=== PATIENT | female | born 1980 | race Caucasian/White ===

== ENCOUNTER 2023-08-08 21:21 | Emergency (ER) | payer OTHER, SELFPAY ==
[2023-08-08 21:34] VITALS: BP 137/69; PULSE 71; RESP 18; TEMP 36.8; O2SAT 100
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
[2023-08-08 22:01] LABS: Basophils Absolute Auto 0.09 K/mm3 (0.00-0.10); Basophils Percent Auto 1.1 % (0.0-1.0); Eosinophils Absolute Auto 0.45 K/mm3 (0.02-0.50); Eosinophils Percent Auto 5.5 % (1.0-6.0); Hematocrit 31.6 % (35.0-49.0); Hemoglobin 8.9 g/dL (12.0-15.0); Immature Granulocyte Absolute 0.03 K/mm3 (0.00-0.00); Immature Granulocyte Percent A 0.4 % (0.0-0.0); Immature Platelet Fraction Pct 3.5 % (1.0-7.0); Lymphocytes Absolute Auto 1.35 K/mm3 (1.10-4.50); Lymphocytes Percent Auto 16.6 % (18.0-42.0); Mean Corpuscular HGB Conc 28.2 g/dL (32.0-36.0); Mean Corpuscular Hemoglobin 17.9 pg (27.0-31.0); Mean Corpuscular Volume 63.7 fL (78.0-102.0); Monocytes Absolute Auto 0.84 K/mm3 (0.10-0.90); Monocytes Percent Auto 10.3 % (2.0-11.0); Neutrophils Absolute Auto 5.4 K/mm3 (1.7-7.2); Neutrophils Percent Auto 66.1 % (50.0-70.0); Platelet Count Result 562 K/mm3 (150-420); Red Blood Count 4.96 M/mm3 (4.20-5.40); Red Cell Distribution Width 22.8 % (11.6-14.4); White Blood Count 8.1 K/mm3 (4.8-10.8)
[2023-08-08 22:15] LABS: Amphetamine Screen Urine Negative (Negative); Barbiturate Screen Urine Negative (Negative); Benzodiazepines Screen Urine Negative (Negative); Cannabinoid Screen Urine Positive (Negative); Cocaine Screen Urine Negative (Negative); Methadone Screen Urine Negative (Negative); Opiate Screen Urine Negative (Negative); Phencyclidine Screen Urine Negative (Negative)
[2023-08-08 22:20] LABS: Lactic Acid Reflex 1.5 mmol/L (0.4-2.0)
[2023-08-08 22:27] LABS: Alanine Aminotransferase 39 U/L (14-59); Albumin Level 3.3 g/dL (3.4-5.0); Alkaline Phosphatase 161 U/L (46-116); Anion Gap 9 mmol/L (8-16); Aspartate Amino Transferase 25 U/L (15-37); Bilirubin,Total 0.4 mg/dL (0.00-1.00); Blood Urea Nitrogen 11 mg/dL (7-18); Calcium 9.2 mg/dL (8.5-10.1); Carbon Dioxide 27 mmol/L (21-32); Chloride 101 mmol/L (98-108); Estimated CRCL calculation 91 ml/min; Estimated Glomerular Filt Rate > 60; Glucose 112 mg/dL (70-99); Osmolality Calculated 284 mOsm/kg (285-295); Sodium 137 mmol/L (136-145); Total Protein 7.6 g/dL (6.4-8.2)
[2023-08-08 22:30] LABS: Appearance Urine Clear (Clear); Bilirubin Urine Negative (Negative); Blood Urine Negative (Negative); CRP < 0.5 mg/dL (0.0-0.9); Color Urine Light Yellow (Yellow); Glucose Urine UA Negative (Negative); Ketones Urine Negative (Negative); Leukocyte Esterase Ur 1+ LEU/UL (Negative); Nitrate Urine Negative (Negative); Protein Urine Negative (Negative); Specific Grav Ur 1.015 (1.010-1.020); Urobilinogen Urine 0.2 mg/dL (0.2-1.0); pH Urine 5.5 (5.0-8.0)
[2023-08-08 22:31] LABS: Lipase 412 U/L (16-77)
[2023-08-08 22:36] LABS: Add Urine Microscopic? YES; Bacteria Urine Trace /hpf; RBC Urine 0-2 /hpf (0-2); Squamous Epithelial Cell Urine Occasional /hpf (Few)
[2023-08-08 22:36] LABS: Pregnancy On Board Control Positive; Urine Pregnancy Test Negative
--- NOTE | 2023-08-08 23:00 | PC.NURSE ---
Multiple attempts at IV starts attempted, pt states she is a hard stick and only will let staff use her Rt arm. 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 She refuses any other source of IV site attempts.
[2023-08-08 23:20] VITALS: BP 130/75; PULSE 74; RESP 20; TEMP 36.6; O2SAT 100
--- NOTE | 2023-08-08 23:26 | PC.NURSE ---
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
--- NOTE | 2023-08-11 12:39 | PC.NURSE ---
Final urine culture results: No growth, no further treatment or action needed.
== END 2023-08-08 23:32 | disposition left against medical advice (07) ==
PROVIDERS: Emergency Provider Family Medicine
DX: K85.90 Acute pancreatitis without necrosis or infection, unspecified (principal); K90.0 Celiac disease
CPT/HCPCS: 36415; 80053; 80307; 81001; 81025; 83605; 83690; 85025; 85055; 86140; 87086; 99283